=== PATIENT | male | born 1960 | race Caucasian/White ===

== ENCOUNTER 2025-01-22 07:42 | Emergency (ER) | payer BC ==
[2025-01-22 08:25] LABS: BASOPHILS ABSOLUTE AUTO 0.04 K/uL (0.02-0.10); BASOPHILS PERCENT AUTO 0.3 % (0.0-0.5); EOSINOPHILS ABSOLUTE AUTO 0.11 K/uL (0.04-0.40); EOSINOPHILS PERCENT AUTO 0.8 % (1.0-5.0); HEMATOCRIT 37.6 % (40.0-54.0); HEMOGLOBIN 12.6 g/dL (13.0-18.0); LYMPHOCYTES PERCENT AUTO 7.8 % (20.0-40.0); MEAN CORPUSCULAR HEMOGLOBIN 29.5 pg (27.0-32.0); MEAN CORPUSCULAR HGB CONC 33.5 g/dL (31.0-35.0); MEAN CORPUSCULAR VOLUME 88 fL (76-96); MEAN PLATELET VOLUME 9.7 fL (6.0-10.0); MONOCYTES ABSOLUTE AUTO 1.15 K/uL (0.20-0.80); MONOCYTES PERCENT AUTO 8.1 % (3.0-10.0); NEUTROPHILS ABSOLUTE AUTO 11.79 K/uL (2.00-7.50); PLATELET COUNT,PLT 269 K/uL (150-400); RED BLOOD CELL COUNT 4.27 M/uL (4.50-6.50); RED CELL DISTRIBUTION WIDTH 13.2 % (11.0-16.0); WHITE BLOOD CELL COUNT,WBC 14.2 K/uL (4.0-11.0)
[2025-01-22] MEDS: Ketorolac 30 MG/ML SDV IM ONE (08:36)
[2025-01-22 08:37] LABS: ANION GAP 9.8 mmol/L (5.0-15.0); BUN/CREATININE RATIO 16.7 (6-25); C-REACTIVE PROTEIN 6.6 mg/L (<5.0); CALCIUM 8.4 mg/dL (8.5-10.1); CARBON DIOXIDE,CO2 29.8 mmol/L (21.0-32.0); CREATININE 1.14 mg/dL (0.70-1.30); EST CRCL DRUG DOSING (CG) 66.7 mL/min; POTASSIUM,K 4.6 mmol/L (3.5-5.1)
[2025-01-22 09:47] VITALS: BP 166/75; PULSE 62
== END 2025-01-22 09:30 | disposition home or self-care (01) ==
LOC: LB.ED 07:42
DX: M11.241 Other chondrocalcinosis, right hand (principal); Z79.82 Long term (current) use of aspirin; Z79.02 Long term (current) use of antithrombotics/antiplatelets; Z79.899 Other long term (current) drug therapy; Z86.73 Personal history of transient ischemic attack (TIA), and cerebral infarction without residual deficits; Z87.891 Personal history of nicotine dependence
CPT/HCPCS: 36415; 73110-RT; 80048; 84550; 85025; 86140; 96372; 99283; J1885